=== PATIENT | female | born 1975 | race Caucasian/White ===

== ENCOUNTER 2016-08-02 09:50 | Observation (INO) | payer BC ==
[~2016-08-02] VITALS: Ht 180.3 cm; Wt 195.0 kg
[~2016-08-02 09:50] MED LIST: CIPRO500 MG OR; DEPO-PROVER150 MG/M1 IM; FLEXERIL PO; HYDROCHLOROT25 MG PO; IRON325 MG PO; LISINOPRIL40 MG PO; METO50TA52 PO; METOPROLOL SUC100 MG PO; MICROZIDE OR; MULTIVITAMIN W/IRON; NAPROSYN500 MG PO; SYNTHROID50 MCG OR; VALTREX500 MG OR
--- NOTE | 2016-08-02 10:02 | NUR ---
PATIENT TO ROOM VIA EMS
[2016-08-02 10:24] LABS: HEMATOCRIT 36.7 % (37.0-47.0); HEMOGLOBIN 12.1 g/dl (12.0-16.0); IMMATURE GRANULOCYTES 0.4 % (0.0-1.0); MEAN CELL VOLUME 81.9 fL CALC (80.0-100.0); NEUT# 4.97 thou/uL (2.00-7.15); RED BLOOD COUNT 4.48 mill/uL (4.20-5.60); RED CELL DISTRI WIDTH 16.5 % (11.5-15.5)
[2016-08-02 10:50] LABS: ALBUMIN 4.2 g/dL (3.2-5.0); ALKALINE PHOSPHATASE 131 u/l (38-126); ANION GAP 12 (6-22 (CALC)); BILIRUBIN, TOTAL 0.6 mg/dL (0.0-1.4); BUN 11 mg/dL (7-17); BUN/CREATININE RATIO 21 (12-20 (CALC)); CALCIUM 8.7 mg/dL (8.4-10.2); CARBON DIOXIDE 26 mmol/l (22-30); CHLORIDE 99 mmol/l (95-108); CREATININE 0.5 mg/dL (0.5-1.0); GFR > 60 ML/MIN (>=60 (CALC)); GFR FOR AFR.AMER. > 60 ML/MIN (>=60 (CALC)); GLUCOSE 223 mg/dL (65-105); POTASSIUM 4.1 mmol/l (3.5-5.1); SGOT/AST 56 u/l (14-36); SGPT/ALT 44 u/l (9-52); SODIUM 133 mmol/l (137-146); TOTAL PROTEIN 7.6 g/dL (6.3-8.2)
--- NOTE | 2016-08-02 10:57 | NUR ---
PT NOW WITH IV ESTABLISHED, BLOOD DRAWN, STATES PAIN IS RESOLVED.
[2016-08-02] MEDS ORDERED: METFORMIN500 MG PO (11:01)
[2016-08-02] MEDS ORDERED: CHLORTHALIDONE25 MG PO (11:01)
[2016-08-02 11:06] LABS: MYOGLOBIN 23 ng/mL (0 - 62)
--- NOTE | 2016-08-02 11:24 | NUR ---
SBAR PRINTED TO FLOOR
--- NOTE | 2016-08-02 12:47 | NUR ---
Admission Note Report Given to: sbar printed to floor Transported by: Wheelchair x Stretcher Transported with: x Nurse Transporter x Patent IV O2 x Rn Admit
--- NOTE | 2016-08-02 13:00 | NUR ---
PT TO ROOM 289 VIA WC ACCOMPANIED BY THIS NURSE; PT A/O X3; TELE MONITOR IN PLACE; PT DENIES PAIN; FAMILY AT BEDSIDE; ORIENTED TO ROOM AND CALL SYSTEM CALL SILVA WITHIN REACH; WILL CONTINUE TO MONITOR.
[2016-08-02 13:04] VITALS: BP 179/99
[2016-08-02 13:11] LABS: URINE BILIRUBIN - DIPSTICK NEGATIVE (NEGATIVE); URINE BLOOD DIPSTICK SMALL (NEGATIVE); URINE CLARITY HAZY; URINE COLOR YELLOW; URINE GLUCOSE - DIPSTICK NEGATIVE (NEGATIVE); URINE KETONE NEGATIVE (NEGATIVE); URINE LEUK ESTERASE NEGATIVE (NEGATIVE); URINE NITRITE - DIPSTICK NEGATIVE (Negative); URINE PROTEIN - DIPSTICK NEGATIVE (NEG-TRACE); URINE SPECIFIC GRAVITY 1.025; URINE UROBILINOGEN - DIPSTICK 0.2 E.U./dL (0.2)
--- NOTE | 2016-08-02 15:14 | NUR ---
PT VISITING WITH FAMILY; DENIES PAIN; TELE MONITOR IN PLACE; CALL SILVA WITHIN REACH; WILL CONTINUE TO MONITOR.
[2016-08-02 16:03] VITALS: BP 161/88
[2016-08-02 19:00] VITALS: BP 171/86
[2016-08-03] VITALS: BP 141/82
--- NOTE | 2016-08-03 | NUR ---
PT RESTING WITH EYES CLOSED. NO ACUTE DISTRESS NOTED.
[2016-08-03 04:00] VITALS: BP 121/65
[2016-08-03 06:45] LABS: HEMATOCRIT 34.8 % (37.0-47.0); HEMOGLOBIN 11.2 g/dl (12.0-16.0); IMMATURE GRANULOCYTES 0.4 % (0.0-1.0); MEAN CELL VOLUME 83.5 fL CALC (80.0-100.0); MEAN CORPUSCULAR HGB 26.9 pG CALC (26.0-32.0); MEAN CORPUSCULAR HGB CONC 32.2 g/L CALC (32.0-36.0); NEUT# 4.17 thou/uL (2.00-7.15); RED BLOOD COUNT 4.17 mill/uL (4.20-5.60); RED CELL DISTRI WIDTH 15.3 % (11.5-15.5)
[2016-08-03 07:06] LABS: ANION GAP 16 (6-22 (CALC)); BUN 11 mg/dL (7-17); BUN/CREATININE RATIO 19 (12-20 (CALC)); CALCIUM 8.7 mg/dL (8.4-10.2); CALCULATED LDLCHOLESTEROL 147 mg/dL (62-129 (CALC)); CARBON DIOXIDE 26 mmol/l (22-30); CHLORIDE 100 mmol/l (95-108); CREATININE 0.6 mg/dL (0.5-1.0); GFR > 60 ML/MIN (>=60 (CALC)); GFR FOR AFR.AMER. > 60 ML/MIN (>=60 (CALC)); GLUCOSE 188 mg/dL (65-105); HDL CHOLESTEROL 38 mg/dL (>=40); POTASSIUM 4.2 mmol/l (3.5-5.1); SODIUM 138 mmol/l (137-146); TOTAL CHOLESTEROL 238 mg/dl (0-199); TOTAL TRIGLYCERIDES 265 mg/dl (30-149); VLDL CHOLESTROL 53 mg/dl (1-41 (CALC))
[2016-08-03 07:22] VITALS: BP 133/69
--- NOTE | 2016-08-03 07:24 | NUR ---
PATIENT IS ALERT AND ORIENTATED X4. PATIENT IS UP OUT OF BED SITTING IN CHAIR WATCHING TV. VITAL SIGNS WERE STABLE. PATIENT HAS NO COMPLAINTS AT THE MOMENT. CALL LIGHT WAS GIVEN WITH INSTRUCTIONS TO USE IF ANYTHING.
--- NOTE | 2016-08-03 07:25 | NUR ---
PT SITTING UP IN CHAIR; FAMILY IN ROOM; DENIES PAIN; TELE MONITOR IN PLACE; CALL SILVA WITHIN REACH; WILL CONTINUE TO MONITOR.
[2016-08-03 08:35] VITALS: BP 133/69
--- NOTE | 2016-08-03 09:02 | NUR ---
DR. SEGURA IN TO SEE PT; PLAN OF CARE DISCUSSED
[2016-08-03] MEDS ORDERED: LIPITOR20 MG PO (10:20)
[2016-08-03] MEDS ORDERED: METFORMIN HCL1000 MG PO (10:20)
[2016-08-03] MEDS ORDERED: AMLODIPINE BESYL5 MG PO (10:20)
[2016-08-03] MEDS ORDERED: ADLT ASA LOW81 MG PO (10:20)
[2016-08-03] MEDS ORDERED: NITROSTAT0.4 MG SL (10:21)
--- NOTE | 2016-08-03 11:18 | NUR ---
Discharge instructions given. Patient verbalizes understanding of same. Discharged in stable condition via Ambulatory to Home with family. All belongings sent with pt.
--- NOTE | 2016-08-03 11:25 | NUR ---
PILAR DREW STUDENT DOCUMENTATION DATE AND TIME: 08/03/1612/13/1124 by Millicent Mendez-Instructor. All documentation for date entered by TUNG Verdugo reviewed and deemed acceptable.
== END 2016-08-03 11:25 | disposition home or self-care (01) | DRG 313 ==
LOC: ENPENDDIS → ED 09:50 → ED-I 11:25 → ED 11:53 → MS2 11:54
PROVIDERS: Emergency Medicine; ADMIT Internal Medicine; ATTEND Internal Medicine
DX: R07.89 Other chest pain (principal); Z68.44 Body mass index [BMI] 60.0-69.9, adult; I10 Essential (primary) hypertension; I16.0 Hypertensive urgency; E03.9 Hypothyroidism, unspecified; E11.9 Type 2 diabetes mellitus without complications; E66.01 Morbid (severe) obesity due to excess calories; R06.02 Shortness of breath; Z79.84 Long term (current) use of oral hypoglycemic drugs
CPT/HCPCS: G0378; J1650

== ENCOUNTER 2017-04-23 06:27 | Emergency (ER) | payer BC ==
[~2017-04-23] VITALS: Ht 172.7 cm; Wt 181.8 kg
[~2017-04-23 06:27] MED LIST changes: +ADLT ASA LOW81 MG PO; +AMLODIPINE BESYL5 MG PO; +CHLORTHALIDONE25 MG PO; +LIPITOR20 MG PO; +METFORMIN HCL1000 MG PO; +METFORMIN500 MG PO; +NITROSTAT0.4 MG SL
[2017-04-23] MEDS ORDERED: VICTOZA18 MG/3 ML SC (06:47)
[2017-04-23] MEDS ORDERED: METFORMIN500 M2 PO (06:47)
[2017-04-23] MEDS ORDERED: LEVOTHYROXIN75 MCG PO (06:48)
[2017-04-23] MEDS ORDERED: OMEPRAZOLE10 MG PO (06:49)
[2017-04-23] MEDS ORDERED: LIPITOR20 MG PO (06:49)
[2017-04-23] MEDS ORDERED: HYDROCHLOROT25 MG PO (06:50)
[2017-04-23 07:21] VITALS: BP 189/94
== END 2017-04-23 07:26 | disposition home or self-care (01) | DRG 605 ==
LOC: ED 06:27
DX: S50.12XA Contusion of left forearm, initial encounter (principal); W01.0XXA Fall on same level from slipping, tripping and stumbling without subsequent striking against object, initial encounter; Y93.89 Activity, other specified; Y92.009 Unspecified place in unspecified non-institutional (private) residence as the place of occurrence of the external cause

== ENCOUNTER 2017-07-30 12:22 | Inpatient (IN) | payer BC ==
[~2017-07-30] VITALS: Ht 172.7 cm; Wt 82.8 kg
[~2017-07-30 12:22] MED LIST changes: +LEVOTHYROXIN75 MCG PO; +METFORMIN500 M2 PO; +OMEPRAZOLE10 MG PO; +VICTOZA18 MG/3 ML SC
--- NOTE | 2017-07-30 12:36 | NUR ---
PATIENT TO ROOM VIA EMS AND PHYSICIAN AT BEDSIDE FOR EVAL
--- NOTE | 2017-07-30 12:47 | NUR ---
PT MEDICATED. REQUESTED BOX OF ÁNGELA.
[2017-07-30] MEDS ORDERED: HYDROCHLOROT25 MG PO (12:52)
[2017-07-30 12:59] LABS: HEMATOCRIT 33.3 % (37.0-47.0); HEMOGLOBIN 10.4 g/dl (12.0-16.0); IMMATURE GRANULOCYTES 0.5 % (0.0-1.0); MEAN CORPUSCULAR HGB 24.4 pG CALC (26.0-32.0); MEAN CORPUSCULAR HGB CONC 31.2 g/L CALC (32.0-36.0); NEUT# 7.28 thou/uL (2.00-7.15); RED BLOOD COUNT 4.26 mill/uL (4.20-5.60); RED CELL DISTRI WIDTH 16.5 % (11.5-15.5)
[2017-07-30 13:02] LABS: MEAN CELL VOLUME 78.2 fL CALC (80.0-100.0)
--- NOTE | 2017-07-30 13:15 | NUR ---
DR PADRON IN WITH PT, NEW ORDERS RECEIVED.
[2017-07-30 13:17] LABS: ANION GAP 15 (6-22 (CALC)); BUN 10 mg/dL (7-17); BUN/CREATININE RATIO 17 (12-20 (CALC)); CALCULATED LDLCHOLESTEROL 122 mg/dL (62-129 (CALC)); CARBON DIOXIDE 26 mmol/l (22-30); CHLORIDE 105 mmol/l (95-108); CHOLESTEROL HDL RATIO 5.2 (<4.4 (CALC)); CREATININE 0.6 mg/dL (0.5-1.0); GFR > 60 ML/MIN (>=60 (CALC)); GFR FOR AFR.AMER. > 60 ML/MIN (>=60 (CALC)); HDL CHOLESTEROL 35 mg/dL (>=40); SODIUM 142 mmol/l (137-146); TOTAL CHOLESTEROL 180 mg/dl (0-199); TOTAL TRIGLYCERIDES 115 mg/dl (30-149); VLDL CHOLESTROL 23 mg/dl (1-41 (CALC))
[2017-07-30 13:27] LABS: INFLUENZA A NONE DETECTED (NONE DETECT); INFLUENZA B NONE DETECTED (NONE DETECT)
--- NOTE | 2017-07-30 13:45 | NUR ---
PT RESTING COMFORTABLY IN STRETCHER AND DENIES ANY PAIN AT THIS TIME. SINUS RHYTHM NOTED ON THE MONITOR AT 76 BPM. LIGHTS DIMMED FOR PT COMFORT.
[2017-07-30 13:47] LABS: TSH, 3RD GENERATION 2.02 uIU/mL (0.47 - 4.68)
--- NOTE | 2017-07-30 14:30 | NUR ---
MD AT BEDSIDE TO DISCUSS PLAN OF CARE AND ADMISSION.
--- NOTE | 2017-07-30 14:40 | NUR ---
SBAR PRINTED TO FLOOR
--- NOTE | 2017-07-30 15:10 | NUR ---
MS NURSE WILL CALL BACK FOR REPORT.
--- NOTE | 2017-07-30 15:22 | NUR ---
PT RESTING COMFORTBALY IN STRETCHER AND DENIES ANY PAIN AT THIS TIME. PT AWARE OF PLAN FOR ADMISSION. CALL SHIRA CHESTER, WILL CONTINUE TO MONITOR.
--- NOTE | 2017-07-30 15:38 | NUR ---
REPORT CALLED TO KARTIK FRANCO.
[2017-07-30 15:50] VITALS: BP 160/97
--- NOTE | 2017-07-30 15:50 | NUR ---
Admission Note Report Given to: SBAR PRINTED TO FLOOR Transported by: Wheelchair X Stretcher Transported with: X Nurse Transporter X Patent IV O2 X Hair Dryer
--- NOTE | 2017-07-30 15:55 | NUR ---
FROM ER VIA STRETCHER ACCOMPANIED BY JUAN VERDUGO. AMBULATED TO BED WITH STEADY GAIT. RESPS EVEN AND UNLABORED ON ROOM AIR, TELE MONITOR IN PLACE. DENIES PAIN OR DISCOMFORT. ORIENTED TO ROOM AND CALL SYSTEM. SAFETY PRECAUTIONS REINFORCED. BED IN LOWEST POSITION WITH WHEELS LOCKED. CALL LIGHT WITHIN REACH. ENCOURAGED PT TO CALL FOR ANY NEEDS.
[2017-07-30 18:47] LABS: AMYLASE 40 u/l (30-110); LIPASE 57 u/l (23-300)
--- NOTE | 2017-07-30 20:05 | NUR ---
REPORT RECEIVED FROM DAY NURSE, PT.IS UPRIGHT IN RECLINER W/LEGS ELEVATED, SON IS LAYING IN PT.'S BED, TV AND LIGHTS ARE ON. PT.DENIES ANY NEEDS AT THIS TIME, CALL LIGHT IS AT SIDE.
[2017-07-30 20:20] VITALS: BP 170/86
--- NOTE | 2017-07-30 22:28 | NUR ---
PT.IS SITTING IN RECLINER, SON IN HER BED. I OFFERED A ROLL-A-WAY BED FOR HER SON, WILL BE PROVIDED. PT.STATES THAT SHE WILL PROBABLY STAY IN RECLINER FOR THE NIGHT DUE TO COUGHING WHEN SHE LAYS DOWN. PT. MEDICATED ORDERS PROVIDE, BLOOD SUGAR IS 214/SHE REFUSED INSULIN AT THIS TIME, STATING THAT "IT WILL BE DOWN IN A FEW HOURSE AND I DON'T WANT TO DROP TOO LOW WHEN I SLEEP." PT.MEDICATED FOR BP OF 170/86 ORDERS PROVIDED UPON NOTIFYING OF BP. PT.DENIES ANY OTHER NEEDS AT THIS TIME.
[2017-07-30 23:45] VITALS: BP 168/100
--- NOTE | 2017-07-31 02:40 | NUR ---
PT.IS IN BED W/LIGHTS OUT, AWOKE TO MY ENTERING ROOM, SON IS ASLEEP IN RECLINER. PT.DENIES ANY NEEDS OR PAIN AT THIS TIME. CALL LIGHT IS AT SIDE AND PT.ENCOURAGED TO CALL IF ANY NEEDS ARISE
[2017-07-31 04:55] VITALS: BP 153/92
--- NOTE | 2017-07-31 06:14 | NUR ---
PT.MEDICATED ORDERS PROVIDE. PT.LEFT SITTING ON SIDE OF BED, SON IS AT BEDSIDE. PT.DENIES ANY PAIN OR DISCOMFORT, BUT IS COUGHING WHILE I'M IN THE ROOM, GREEN PRODUCTIVE THICK. PT.DENIES ANY OTHER NEEDS AT THIS TIME
--- NOTE | 2017-07-31 09:05 | NUR ---
ASSESSMENT IS COMPLETD: IV SITE IS FREE FROM REDNESS OR EDEMA.HR IS REG,PULSES ARE STRONGX4, ABD IS SOFT WITH ACTIVE BS. TELE MONITOR IN PLACE,. CONTINUE TO OBSERVE AND MONITOR.
[2017-07-31 09:40] VITALS: BP 144/110
--- NOTE | 2017-07-31 12:30 | NUR ---
PT IS RELAXING IN BED WITH NO DISTRESS NOTED. CONTINUE TO OSBERVE AND MONITOR. IV SITE IS FREE FROM REDNESS OR EDEMA.
[2017-07-31 13:00] VITALS: BP 141/81
[2017-07-31 15:54] VITALS: BP 151/76
[2017-07-31 19:00] VITALS: BP 151/83
--- NOTE | 2017-07-31 19:30 | NUR ---
REPORT RECEIVED FROM DAY NURSE. RESULTS FROM CTA CALLED TO PHYSICIAN AND POC DISCUSSED W/PT. SON IS IN ROOM WITH PT AT THIS TIME. PT.DENIES ANY NEEDS AND ENCOURAGED PT.TO CALL IF ANY NEEDS ARISE
--- NOTE | 2017-07-31 21:24 | NUR ---
PT.MEDICATED ORDERS PROVIDE. PT.REFUSED LEVEMIR ORDERED STATING, SHE DOES NOT WANT TO DROP. I PROCEEDED TO EDUCATE PT.ON LEVEMIR, BUT PT.REFUSED STATING SHE HAD A SCARY EXPERIENCE W/ A FAMILY MEMBER DROPPING TOO MUCH OVERNIGHT AND SHE DOES NOT WANT TO RISK IT. PT.DENIES ANY PAIN OR OTHER NEEDS AT THIS TIME. SON IS STAYING IN ROOM W/PT.OVERNIGHT/PROVIDED ROLL-AWAY AND BEDDING. CALL LIGHT AT SIDE AND PT.ENCOURAGED TO CALL IF ANY NEEDS ARISE.
[2017-08-01] VITALS: BP 127/73
--- NOTE | 2017-08-01 00:30 | NUR ---
PT.IS IN BED W/LIGHTS OUT AND SON AT BEDSIDE SLEEPING. PT.APPEARS TO BE SLEEPING, AWOKE SLIGHTLY AND TURNED OVER UPON MY ENTERING ROOM, DENIES ANY NEEDS. CALL LIGHT IS AT SIDE
--- NOTE | 2017-08-01 02:10 | NUR ---
PT.IS IN BED W/LIGHTS OUT, SON SLEEPING ON ROLL-AWAY AT BEDSIDE. NO S/S OF DISTRESS AT THIS TIME.
[2017-08-01 04:48] VITALS: BP 135/83
--- NOTE | 2017-08-01 05:30 | NUR ---
PT.MEDICATED AT THIS TIME. PT.IS IN BED W/LIGHTS ON AND SON ASLEEP ON ROLL-AWAY AT BEDSIDE. PT.DENIES ANY PAIN OR DISTRESS AT THIS TIME. ENCOURAGED TO CALL IF ANY NEEDS ARISE
--- NOTE | 2017-08-01 08:30 | NUR ---
PT IS SITTING UP ON THE SIDE OF THE BED FAMILY IN THE ROOM. NO DISTRESS NOTED. IV SITE IS FREE FROM REDNESS OR EDEMA. CONTINUE TO OSBERVE AND MONITOR.
[2017-08-01 11:10] VITALS: BP 136/61
[2017-08-01] MEDS ORDERED: LEVAQUIN750 MG PO (11:52)
[2017-08-01] MEDS ORDERED: PREDNISONE10 MG PO (11:52)
[2017-08-01] MEDS ORDERED: LISINOPRIL20 M1 PO (11:52)
[2017-08-01] MEDS ORDERED: ASPIRIN ADULT L81 M2 PO (11:53)
--- NOTE | 2017-08-01 12:15 | NUR ---
PT IS SITTING IN THE CHAIR WITH NO DISTRESS NOTED. IV SITES ARE CDI. FAMILY IN THE ROOM. CONTINUE TO OBSERVE AND MONITOR.
--- NOTE | 2017-08-01 14:00 | NUR ---
IV SITE AND DISCHARGE INSTRUCTIONS WERE GIVEN TO PT AT THIS TIME,. NO DISTRESS NOTED. FAMILY IN THE ROOM.
--- NOTE | 2017-08-01 14:41 | NUR ---
Discharge instructions given. Patient verbalizes understanding of same. Discharged in stable condition via Wheelchair to Home with family. All belongings sent with pt.
== END 2017-08-01 14:42 | disposition home or self-care (01) | DRG 194 ==
LOC: ED 12:22 → ED-I 14:11 → ED 14:21 → MS2 14:22
PROVIDERS: Family Medicine; Hospitalist; ADMIT Internal Medicine; ATTEND Internal Medicine
DX: J18.9 Pneumonia, unspecified organism (principal); Z68.44 Body mass index [BMI] 60.0-69.9, adult; E66.01 Morbid (severe) obesity due to excess calories; I16.0 Hypertensive urgency; I10 Essential (primary) hypertension; E11.9 Type 2 diabetes mellitus without complications; E78.5 Hyperlipidemia, unspecified; Z79.4 Long term (current) use of insulin; Z87.11 Personal history of peptic ulcer disease
CPT/HCPCS: Q9967

== ENCOUNTER 2017-09-08 11:00 | Emergency (ER) | payer BC ==
[~2017-09-08] VITALS: Ht 172.7 cm; Wt 181.8 kg
[~2017-09-08 11:00] MED LIST changes: +ASPIRIN ADULT L81 M2 PO; +LEVAQUIN750 MG PO; +LISINOPRIL20 M1 PO; +PREDNISONE10 MG PO
[2017-09-08] MEDS ORDERED: AMLODIPINE BESYL5 MG PO (11:16)
[2017-09-08 12:04] LABS: HEMATOCRIT 36.2 % (37.0-47.0); HEMOGLOBIN 11.5 g/dl (12.0-16.0); IMMATURE GRANULOCYTES 0.4 % (0.0-1.0); MEAN CELL VOLUME 78.2 fL CALC (80.0-100.0); MEAN CORPUSCULAR HGB 24.8 pG CALC (26.0-32.0); MEAN CORPUSCULAR HGB CONC 31.8 g/L CALC (32.0-36.0); NEUT# 6.45 thou/uL (2.00-7.15); RED BLOOD COUNT 4.63 mill/uL (4.20-5.60); RED CELL DISTRI WIDTH 17.7 % (11.5-15.5)
[2017-09-08 12:18] LABS: ALBUMIN 4.1 g/dL (3.2-5.0); ALKALINE PHOSPHATASE 154 u/l (38-126); ANION GAP 18 (6-22 (CALC)); BILIRUBIN, TOTAL 0.5 mg/dL (0.0-1.4); BUN 11 mg/dL (7-17); BUN/CREATININE RATIO 20 (12-20 (CALC)); CARBON DIOXIDE 23 mmol/l (22-30); CHLORIDE 102 mmol/l (95-108); CREATININE 0.6 mg/dL (0.5-1.0); GFR > 60 ML/MIN (>=60 (CALC)); GFR FOR AFR.AMER. > 60 ML/MIN (>=60 (CALC)); SGOT/AST 38 u/l (14-36); SGPT/ALT 45 u/l (9-52); SODIUM 139 mmol/l (137-146); TOTAL PROTEIN 7.5 g/dL (6.3-8.2)
[2017-09-08 12:20] LABS: D-DIMER 0.23 mg/L (0.19-0.60); INTERNATIONAL NORMALIZED RATIO 0.9 RATIO (0.7-1.3); PROTHROMBIN TIME 10.3 SECONDS (9.0-12.5)
[2017-09-08] MEDS ORDERED: LEVAQUIN750 MG PO (12:59)
[2017-09-08] MEDS ORDERED: VOLTAREN - GENE75 MG PO (12:59)
[2017-09-08 13:28] VITALS: BP 175/82
== END 2017-09-08 13:28 | disposition home or self-care (01) | DRG 203 ==
LOC: ED 11:00
PROVIDERS: Family Medicine
DX: J20.9 Acute bronchitis, unspecified (principal); I10 Essential (primary) hypertension; R09.1 Pleurisy; R06.02 Shortness of breath; R05 Cough

== ENCOUNTER 2020-04-28 10:55 | Observation (INO) | payer BC ==
[2020-04-28] VITALS (12 sets, daily range): BP systolic 131–207; BP diastolic 67–122
[~2020-04-28] VITALS: Ht 172.7 cm; Wt 182.0 kg
--- NOTE | 2020-04-28 02:54 | NUR ---
BEDRESTING. DENIES ABNORMAL VISION. NO STUDDERING OR WEAKNESSES OF EXTREMITIES
[~2020-04-28 10:55] MED LIST changes: +VOLTAREN - GENE75 MG PO
--- NOTE | 2020-04-28 10:56 | NUR ---
PT VIA WC TO ROOM # 12 FOR BEDSIDE TRIAGE.
--- NOTE | 2020-04-28 11:04 | NUR ---
DR NIEVES CALLED STROKE ALERT AT 1104. PATIENT STATES SHE HAS NUMBNESS AND TINGLING TO LEFT ARM WITH HER VISION CHANGES. LAST KNOWN WELL AT 1115.
--- NOTE | 2020-04-28 11:08 | NUR ---
PATIENT TAKEN DOWN TO CT SCAN VIA STRETCHER IN STABLE CONDITION.
--- NOTE | 2020-04-28 11:28 | NUR ---
NIH COMPLETED WITH DR HORN AT 1118. NIH IS SCORED A 2 AT THIS TIME FOR LEFT LOWER EXTREMITY DRIFT AND DECREASED SENSATION TO LEFT SIDE. SHE DOES NOT RECCOMMEND TPA AT THIS TIME. PER DR NIEVES, NO CTA SCAN UNTIL HCG RESULT IS BACK. PATIENT BROUGHT BACK TO ED IN STABLE CONDITION.
[2020-04-28 11:58] LABS: HEMATOCRIT 36.8 % (37.0-47.0); HEMOGLOBIN 11.7 g/dl (12.0-16.0); IMMATURE GRANULOCYTES 0.4 % (0.0-5.0); MEAN CELL VOLUME 82.9 fL CALC (80.0-100.0); MEAN CORPUSCULAR HGB 26.4 pG CALC (26.0-32.0); MEAN CORPUSCULAR HGB CONC 31.8 g/dL CAL (32.0-36.0); NEUT# 4.48 thou/uL (2.00-7.15); RED BLOOD COUNT 4.44 mill/uL (4.20-5.60); RED CELL DISTRI WIDTH 15.8 % (11.5-15.5)
[2020-04-28 12:11] LABS: ALBUMIN 3.9 g/dL (3.2-5.0); ALKALINE PHOSPHATASE 124 u/l (38-126); ANION GAP 10 (6-22 (CALC)); BILIRUBIN, TOTAL 0.5 mg/dL (0.0-1.4); BUN 9 mg/dL (7-17); BUN/CREATININE RATIO 17 (12-20 (CALC)); CHLORIDE 103 mmol/l (95-108); CREATININE 0.5 mg/dL (0.5-1.0); GFR > 60 ML/MIN (>=60 (CALC)); GFR FOR AFR.AMER. > 60 ML/MIN (>=60 (CALC)); POTASSIUM 3.6 mmol/l (3.5-5.1); SGOT/AST 22 u/l (14-36); SODIUM 138 mmol/l (137-146); TOTAL PROTEIN 7.1 g/dL (6.3-8.2)
[2020-04-28 12:13] LABS: CARBON DIOXIDE 29 mmol/l (22-30)
--- NOTE | 2020-04-28 12:55 | NUR ---
PT ARRIVED BACK TO ROOM AFTER BEING TAKEN DOWN FOR CT SCANS PT DOES NOT APPEAR IN ANY DISTRESS
[2020-04-28 13:03] LABS: INTERNATIONAL NORMALIZED RATIO 0.9 RATIO (0.7-1.3); PROTHROMBIN TIME 9.3 SECONDS (9.0-12.5)
--- NOTE | 2020-04-28 13:16 | NUR ---
PT STILL COMPLAINING OF TINGLING/SPAMS OF THE LEFT ARM AND LEFT LEG PT NOT IN ANY DISTRESS
[2020-04-28] MEDS ORDERED: HYDROCHLOROT25 MG PO (13:17)
[2020-04-28] MEDS ORDERED: LISINOPRIL20 M1 PO (13:17)
--- NOTE | 2020-04-28 14:20 | NUR ---
REPORT CALLED AND GIVEN TO MARIO IN ICU. PT HAS NO COMPLAINTS PRIOR TO TRANSFER AND DURING TRANSFER AND TOLERATED WELL
--- NOTE | 2020-04-28 14:26 | NUR ---
PT ARRIVED TO UNIT VIA WHEELCHAIR WITH ER STAFF; ALERT AND ORIENTED X 4. AMBULATED TO BED WITH STEADY GAIT AND SITTING UP ON EDGE OF BED FOR ASSESSMENT. C/O MILD DULL RIGHT SIDED CHEST PRESSURE AND MODERATE PAIN TO RIGHT/POSTERIOR HEAD BEHIND EAR. RESPIRATIONS EVEN AND UNLABORED ON ROOM AIR; SPO2 99-100%. NIH ON ARRIVAL A 2 DUE TO LEFT LEG DRIFT AND DECREASED SENSATION ON LEFT SIDE COMPARED TO RIGHT SIDE; DENIES ANY VISUAL PROBLEMS BESIDES LIGHT SENSITIVITY. ORIENTED TO ROOM AND CALL LIGHT SYSTEM. PLAN OF CARE DISCUSSED. PT ENCOURAGED TO VERBALIZE CONCERNS. STATES UNDERSTANDING. SAFETY MEASURES IN PLACE. CALL LIGHT WITHIN REACH.
--- NOTE | 2020-04-28 15:24 | NUR ---
SALAD PROVIDED AND PT SITTING UP EATING LATE LUNCH. BLOOD PRESSURE IS ELEVATED; SCHEDULED LISINOPRIL GIVEN.
--- NOTE | 2020-04-28 15:48 | NUR ---
PHYSICAL THERPAY AT BEDSIDE FOR EVAL.
--- NOTE | 2020-04-28 16:35 | NUR ---
UP TO [facility] [place] [facility] TO VOID 700ML OF CLEAR YELLOW URINE. NO CHANGES NOTED TO NEUROLOGICAL STATUS. PT NOW RESTING IN BED SEMI FOWLERS WITH LIGHTS OFF. SINUS ERIKA 57 TO SINUS RHYTHM 66 ON CARDIAC MONTIOR. BLOOD PRESSURE 184/88.
--- NOTE | 2020-04-28 16:46 | NUR ---
NELSON ELIAS AT BEDSIDE FOR EVAL.
--- NOTE | 2020-04-28 17:14 | NUR ---
APRESOLINE GIVEN IV FOR BLOOD PRESSURE OF 198/97 HR 84. PT AGAIN SITTING UP ON EDGE OF BED. STUTTER NOTICED BY MARBLE CEILING INSTALLER AND NURSE AT TIME, PT REPORTS THAT THIS IS NEW AND SHE ONLY HAS IT WHEN SHES THINKING HARDER ABOUT WHAT TO SAY. MRI ORDERED; PT CIRCUMFERENCE IS 65 INCHES; WILL CONFIRM WITH MRI IF IT IS A POSSIBILITY.
--- NOTE | 2020-04-28 18:00 | NUR ---
PT UP TO [facility] FOR LARGE BOWEL MOVEMENT. ATE 50% OF DINNER. NO CHANGES IN NEUROLOGICAL STATUS; NIH REMAINS A 2.
--- NOTE | 2020-04-28 20:00 | NUR ---
BEDRESTING. RESPIRATIONS EVEN AND NONLABORED. NO COUGH OR DISTRESS NOTED.
--- NOTE | 2020-04-28 21:04 | NUR ---
VA DECLINED LOCENOX SAYING SHE BLED SO MUCH JUST HAVING AN ACCUCHEK, SHE DOES NOT THINK SHE NEEDS A BLOOD THINNER. BESIDES SHE HAD ASPRIN IN ER. I EXPLAINED HOW EACH WORK DIFFERENTLY AND THE RECOMMENDATIONS WITH A POSSIBLE CVA. SHE VERBALIZED UNDERSTANDING AND SAID THAT SHE STILL DOES NOT WANT IT. ALSO, SHE HAD BM TODAY AND FEELS SHE DOES NOT NEED OR WANT THE SURFACK EITHER. PT DECLINED HS MEDS
[2020-04-29] VITALS (13 sets, daily range): BP systolic 94–184; BP diastolic 47–89
--- NOTE | 2020-04-29 01:00 | NUR ---
BEDRESTING EYES CLOSED. RESP EVEN AND NONLABORED. TO HAVE MRI IN AM
--- NOTE | 2020-04-29 02:55 | NUR ---
BEDRESTING. NO DISTRESS NOTED. N/C VOICED AT THIS TIME
--- NOTE | 2020-04-29 05:00 | NUR ---
bedresting. readily arrousable. states she feels sine now
--- NOTE | 2020-04-29 06:20 | NUR ---
cooperative. smiling. no distress noted. no studder. nihss 0. requesting tea to drink
[2020-04-29 06:37] LABS: HEMATOCRIT 37.7 % (37.0-47.0); IMMATURE GRANULOCYTES 0.4 % (0.0-5.0); MEAN CELL VOLUME 82.5 fL CALC (80.0-100.0); MEAN CORPUSCULAR HGB 26.3 pG CALC (26.0-32.0); MEAN CORPUSCULAR HGB CONC 31.8 g/dL CAL (32.0-36.0); NEUT# 4.19 thou/uL (2.00-7.15); RED BLOOD COUNT 4.57 mill/uL (4.20-5.60); RED CELL DISTRI WIDTH 15.8 % (11.5-15.5)
--- NOTE | 2020-04-29 07:05 | NUR ---
report given. bedresting
--- NOTE | 2020-04-29 07:15 | NUR ---
REPORT RECEIVED FROM KARTIK ALTMAN. PT RESTING IN BED ON LEFT SIDE WATCHING HER CELL PHONE WITH NO SIGNS OF DISTRESS.
[2020-04-29 07:32] LABS: ALBUMIN 3.7 g/dL (3.2-5.0); ALKALINE PHOSPHATASE 121 u/l (38-126); ANION GAP 12 (6-22 (CALC)); BILIRUBIN, TOTAL 0.4 mg/dL (0.0-1.4); BUN 9 mg/dL (7-17); BUN/CREATININE RATIO 17 (12-20 (CALC)); CALCULATED LDLCHOLESTEROL 143 mg/dL (62-129 (CALC)); CARBON DIOXIDE 26 mmol/l (22-30); CHLORIDE 102 mmol/l (95-108); CREATININE 0.5 mg/dL (0.5-1.0); GFR > 60 ML/MIN (>=60 (CALC)); GFR FOR AFR.AMER. > 60 ML/MIN (>=60 (CALC)); HDL CHOLESTEROL 43 mg/dL (>=40); POTASSIUM 4.1 mmol/l (3.5-5.1); SGOT/AST 19 u/l (14-36); SODIUM 136 mmol/l (137-146); TOTAL PROTEIN 6.4 g/dL (6.3-8.2); TOTAL TRIGLYCERIDES 292 mg/dl (30-149); VLDL CHOLESTROL 58 mg/dl (1-41 (CALC))
[2020-04-29 07:33] LABS: CHOLESTEROL HDL RATIO 5.7 (<4.4 (CALC)); TOTAL CHOLESTEROL 244 mg/dl (0-199)
--- NOTE | 2020-04-29 07:44 | NUR ---
PT NOW SITTING UP ON EDGE OF BED; ASSESSMENT COMPLETED. ALERT AND ORIENTED X 3; DENIES ANY PAIN. RESPIRATIONS EVEN AND UNLABORED ON ROOM AIR. PT REPORTS THAT ALL SYMPTOMS FROM YESTERDAY HAVE RESOLVED; NO CURRENT NUMBNESS OR TINGLING TO LEFT SIDE. LUNGS ARE DIMINISHED; NO EDEMA. NIH 0. POC REVIEWED. PT ENCOURAGED TO VERBALIZE CONCERNS. STATES UNDERSTANDING. SAFETY MEASURES IN PLACE. CALL LIGHT WITHIN REACH.
--- NOTE | 2020-04-29 08:15 | NUR ---
DR. DICKERSON AND NELSON MACIEL AT BEDSIDE FOR EVAL.
[2020-04-29] MEDS ORDERED: LIPITOR20 MG PO (11:35)
--- NOTE | 2020-04-29 12:08 | NUR ---
IV site discontinued, cath intact. No edema , no redness, voices no discomfort.
--- NOTE | 2020-04-29 12:19 | NUR ---
Discharge instructions given. Patient verbalizes understanding of same. Discharged in stable condition via Wheelchair to Home with family. All belongings sent with pt.
== END 2020-04-29 12:20 | disposition home or self-care (01) | DRG 313 ==
LOC: ED 10:55 → ED-I 13:10 → ED 13:31 → ICU 13:32
PROVIDERS: Family Medicine; Nurse Practitioner; ADMIT Internal Medicine; ATTEND Internal Medicine
DX: R07.2 Precordial pain (principal); G45.9 Transient cerebral ischemic attack, unspecified; G43.909 Migraine, unspecified, not intractable, without status migrainosus; Z68.44 Body mass index [BMI] 60.0-69.9, adult; I16.0 Hypertensive urgency; I10 Essential (primary) hypertension; E11.9 Type 2 diabetes mellitus without complications; E78.5 Hyperlipidemia, unspecified; E66.01 Morbid (severe) obesity due to excess calories; Z79.84 Long term (current) use of oral hypoglycemic drugs; Z20.828 Contact with and (suspected) exposure to other viral communicable diseases
CPT/HCPCS: J1650; Q9967

== ENCOUNTER 2021-05-06 14:13 | Inpatient (IN) | payer BC ==
[~2021-05-06] VITALS: Ht 172.7 cm; Wt 184.0 kg
[2021-05-06 14:35] LABS: HEMATOCRIT 37.6 % (37.0-47.0); MEAN CELL VOLUME 87.4 fL CALC (80.0-100.0); MEAN CORPUSCULAR HGB 27.9 pG CALC (26.0-32.0); MEAN CORPUSCULAR HGB CONC 31.9 g/dL CAL (32.0-36.0); NEUT# 9.43 thou/uL (2.00-7.15); RED BLOOD COUNT 4.3 mill/uL (4.20-5.60); RED CELL DISTRI WIDTH 15.4 % (11.5-15.5)
[2021-05-06 15:37] LABS: ALBUMIN 3.9 g/dL (3.2-5.0); ALKALINE PHOSPHATASE 126 u/l (38-126); ANION GAP 11 (6-22 (CALC)); BILIRUBIN, TOTAL 0.5 mg/dL (0.0-1.4); BUN 12 mg/dL (7-17); BUN/CREATININE RATIO 19 (12-20 (CALC)); CARBON DIOXIDE 26 mmol/l (22-30); CHLORIDE 103 mmol/l (95-108); CREATININE 0.6 mg/dL (0.5-1.0); GFR > 60 ML/MIN (>=60 (CALC)); GFR FOR AFR.AMER. > 60 ML/MIN (>=60 (CALC)); POTASSIUM 3.7 mmol/l (3.5-5.1); SGOT/AST 28 u/l (14-36); SODIUM 136 mmol/l (137-146); TOTAL PROTEIN 7.6 g/dL (6.3-8.2)
[2021-05-06] MEDS ORDERED: LISINOPRIL10 MG PO (17:21)
[2021-05-06 23:45] VITALS: BP 194/93
[2021-05-06 23:47] VITALS: BP 187/84
[2021-05-07] VITALS (40 sets, daily range): BP systolic 120–218; BP diastolic 56–98
[2021-05-07 09:55] LABS: HEMATOCRIT 33.4 % (37.0-47.0); HEMOGLOBIN 10.8 g/dl (12.0-16.0); IMMATURE GRANULOCYTES 1.9 % (0.0-5.0); MEAN CELL VOLUME 83.9 fL CALC (80.0-100.0); MEAN CORPUSCULAR HGB 27.1 pG CALC (26.0-32.0); MEAN CORPUSCULAR HGB CONC 32.3 g/dL CAL (32.0-36.0); NEUT# 8.24 thou/uL (2.00-7.15); RED BLOOD COUNT 3.98 mill/uL (4.20-5.60); RED CELL DISTRI WIDTH 15.4 % (11.5-15.5)
[2021-05-07 10:37] LABS: ANION GAP 10 (6-22 (CALC)); BUN 8 mg/dL (7-17); BUN/CREATININE RATIO 16 (12-20 (CALC)); CARBON DIOXIDE 29 mmol/l (22-30); CHLORIDE 99 mmol/l (95-108); CREATININE 0.5 mg/dL (0.5-1.0); GFR > 60 ML/MIN (>=60 (CALC)); GFR FOR AFR.AMER. > 60 ML/MIN (>=60 (CALC)); MAGNESIUM 1.8 mg/dL (1.6-2.3); POTASSIUM 3.6 mmol/l (3.5-5.1); SODIUM 135 mmol/l (137-146)
[2021-05-07 11:38] LABS: CHOLESTEROL HDL RATIO 4.8 (<4.4 (CALC))
[2021-05-08] VITALS (8 sets, daily range): BP systolic 131–176; BP diastolic 59–86
[2021-05-08 05:36] LABS: HEMOGLOBIN 11.5 g/dl (12.0-16.0); MEAN CELL VOLUME 84.3 fL CALC (80.0-100.0); MEAN CORPUSCULAR HGB 27.7 pG CALC (26.0-32.0); MEAN CORPUSCULAR HGB CONC 32.9 g/dL CAL (32.0-36.0); RED BLOOD COUNT 4.15 mill/uL (4.20-5.60); RED CELL DISTRI WIDTH 15.4 % (11.5-15.5)
[2021-05-08 06:00] LABS: ANION GAP 11 (6-22 (CALC)); BUN 9 mg/dL (7-17); BUN/CREATININE RATIO 16 (12-20 (CALC)); CARBON DIOXIDE 30 mmol/l (22-30); CHLORIDE 98 mmol/l (95-108); CREATININE 0.6 mg/dL (0.5-1.0); GFR > 60 ML/MIN (>=60 (CALC)); GFR FOR AFR.AMER. > 60 ML/MIN (>=60 (CALC)); SODIUM 136 mmol/l (137-146)
[2021-05-08] MEDS ORDERED: LISINOPRIL20 M1 PO (10:43)
[2021-05-08] MEDS ORDERED: LASIX 20 MG TAB20 MG PO (10:43)
== END 2021-05-08 12:17 | disposition home or self-care (01) | DRG 305 ==
LOC: ED 14:13 → ED-I 15:37 → ED 15:37 → ED-I 17:05 → ED 17:16 → ICU 17:17
PROVIDERS: Family Medicine; Nurse Practitioner; ADMIT Hospitalist; ATTEND Hospitalist
DX: I16.1 Hypertensive emergency (principal); Z68.44 Body mass index [BMI] 60.0-69.9, adult; I10 Essential (primary) hypertension; E11.9 Type 2 diabetes mellitus without complications; E66.01 Morbid (severe) obesity due to excess calories; R60.0 Localized edema; Z79.84 Long term (current) use of oral hypoglycemic drugs; Z20.822 Contact with and (suspected) exposure to COVID-19
CPT/HCPCS: J1650

== ENCOUNTER 2021-10-01 16:23 | Emergency (ER) | payer BC ==
[~2021-10-01] VITALS: Ht 175.3 cm; Wt 180.0 kg
[~2021-10-01 16:23] MED LIST changes: +LASIX 20 MG TAB20 MG PO; +LISINOPRIL10 MG PO
[2021-10-01 17:04] VITALS: BP 162/85
[2021-10-01 17:08] LABS: HEMATOCRIT 40.5 % (37.0-47.0); IMMATURE GRANULOCYTES 0.4 % (0.0-5.0); MEAN CORPUSCULAR HGB 27.6 pG CALC (26.0-32.0); MEAN CORPUSCULAR HGB CONC 32.1 g/dL CAL (32.0-36.0); NEUT# 6.91 thou/uL (2.00-7.15); RED BLOOD COUNT 4.71 mill/uL (4.20-5.60); RED CELL DISTRI WIDTH 14.5 % (11.5-15.5)
[2021-10-01 17:20] LABS: ALBUMIN 4.4 g/dL (3.2-5.0); ALKALINE PHOSPHATASE 147 u/l (38-126); ANION GAP 12 (6-22 (CALC)); BILIRUBIN, TOTAL 0.4 mg/dL (0.0-1.4); BUN 9 mg/dL (7-17); BUN/CREATININE RATIO 15 (12-20 (CALC)); CARBON DIOXIDE 26 mmol/l (22-30); CHLORIDE 103 mmol/l (95-108); CREATININE 0.6 mg/dL (0.5-1.0); GFR > 60 ML/MIN (>=60 (CALC)); GFR FOR AFR.AMER. > 60 ML/MIN (>=60 (CALC)); LIPASE 90 u/l (23-300); POTASSIUM 3.8 mmol/l (3.5-5.1); SGOT/AST 28 u/l (14-36); SODIUM 137 mmol/l (137-146); TOTAL PROTEIN 7.8 g/dL (6.3-8.2)
[2021-10-01 17:30] VITALS: BP 141/78
[2021-10-01 17:55] LABS: URINE BILIRUBIN - DIPSTICK NEGATIVE (NEGATIVE); URINE BLOOD DIPSTICK NEGATIVE (NEGATIVE); URINE COLOR YELLOW; URINE GLUCOSE - DIPSTICK NEGATIVE (NEGATIVE); URINE KETONE NEGATIVE (NEGATIVE); URINE LEUK ESTERASE NEGATIVE (NEGATIVE); URINE PH 5.5 (4.5-8.0); URINE PROTEIN - DIPSTICK NEGATIVE (NEG-TRACE); URINE SPECIFIC GRAVITY >=1.030; URINE UROBILINOGEN - DIPSTICK 0.2 E.U./dL (0.2)
[2021-10-01 17:56] LABS: URINE NITRITE - DIPSTICK NEGATIVE (Negative)
[2021-10-01] MEDS ORDERED: DICYCLOMINE HCL10 MG PO (19:02)
[2021-10-01 19:12] VITALS: BP 141/78
[2021-10-05] MEDS ORDERED: LIPITOR10 M1 PO (14:57)
[2021-10-05] MEDS ORDERED: LIPITOR40 M1 PO (14:58)
[2021-10-05] MEDS ORDERED: LASIX 40 MG TAB40 MG PO (14:58)
== END 2021-10-01 19:24 | disposition home or self-care (01) | DRG 392 ==
LOC: ED 16:23
PROVIDERS: Internal Medicine
DX: R10.31 Right lower quadrant pain (principal); E87.2 Acidosis; I10 Essential (primary) hypertension; E11.9 Type 2 diabetes mellitus without complications; E66.01 Morbid (severe) obesity due to excess calories; Z86.73 Personal history of transient ischemic attack (TIA), and cerebral infarction without residual deficits; Z79.84 Long term (current) use of oral hypoglycemic drugs
CPT/HCPCS: Q9967

== ENCOUNTER 2022-02-11 16:33 | Emergency (ER) | payer BC ==
[~2022-02-11] VITALS: Ht 175.3 cm; Wt 170.0 kg
[~2022-02-11 16:33] MED LIST changes: +DICYCLOMINE HCL10 MG PO; +LASIX 40 MG TAB40 MG PO; +LIPITOR10 M1 PO; +LIPITOR40 M1 PO
[2022-02-11 17:03] LABS: HEMATOCRIT 39.7 % (37.0-47.0); HEMOGLOBIN 13.1 g/dl (12.0-16.0); IMMATURE GRANULOCYTES 0.2 % (0.0-5.0); MEAN CELL VOLUME 83.6 fL CALC (80.0-100.0); MEAN CORPUSCULAR HGB 27.6 pG CALC (26.0-32.0); NEUT# 6.16 thou/uL (2.00-7.15); RED BLOOD COUNT 4.75 mill/uL (4.20-5.60); RED CELL DISTRI WIDTH 14.4 % (11.5-15.5)
[2022-02-11 17:13] LABS: ALBUMIN 4.5 g/dL (3.2-5.0); ALKALINE PHOSPHATASE 132 u/l (38-126); BILIRUBIN, TOTAL 0.3 mg/dL (0.0-1.4); BUN 13 mg/dL (7-17); BUN/CREATININE RATIO 16 (12-20 (CALC)); CARBON DIOXIDE 26 mmol/l (22-30); CREATININE 0.8 mg/dL (0.5-1.0); GFR FOR AFR.AMER. > 60 ML/MIN (>=60 (CALC)); GFR OTHER RACES > 60 ML/MIN (>=60 (CALC)); SGOT/AST 28 u/l (14-36); SODIUM 137 mmol/l (137-146); TOTAL PROTEIN 7.9 g/dL (6.3-8.2)
[2022-02-11 17:16] LABS: ANION GAP 14 (6-22 (CALC)); CHLORIDE 101 mmol/l (95-108)
[2022-02-11 17:17] LABS: INTERNATIONAL NORMALIZED RATIO 0.9 RATIO (0.7-1.3); PROTHROMBIN TIME 9.3 SECONDS (9.0-12.5)
[2022-02-11 22:22] LABS: URINE BILIRUBIN - DIPSTICK NEGATIVE (NEGATIVE); URINE BLOOD DIPSTICK NEGATIVE (NEGATIVE); URINE COLOR YELLOW; URINE GLUCOSE - DIPSTICK NEGATIVE (NEGATIVE); URINE KETONE NEGATIVE (NEGATIVE); URINE LEUK ESTERASE NEGATIVE (NEGATIVE); URINE PROTEIN - DIPSTICK NEGATIVE (NEG-TRACE); URINE SPECIFIC GRAVITY 1.015; URINE UROBILINOGEN - DIPSTICK 0.2 E.U./dL (0.2)
[2022-02-11 22:23] LABS: URINE NITRITE - DIPSTICK NEGATIVE (Negative)
[2022-02-11 22:31] VITALS: BP 183/94
== END 2022-02-11 22:35 | disposition left against medical advice (07) | DRG 69 ==
LOC: ED 16:33
PROVIDERS: Family Medicine
DX: G45.9 Transient cerebral ischemic attack, unspecified (principal); I10 Essential (primary) hypertension; E11.9 Type 2 diabetes mellitus without complications; E66.01 Morbid (severe) obesity due to excess calories; Z91.19 Patient's noncompliance with other medical treatment and regimen; Z20.822 Contact with and (suspected) exposure to COVID-19
CPT/HCPCS: Q3014; Q9967